=== PATIENT | female | born 1945 | race Hispanic/Latino ===

== ENCOUNTER 2019-06-25 05:59 | Day surgery (SDC) | payer MEDICARE, OTHER ==
[2019-06-25] MEDS ORDERED: ASPIRIN EC 81 MG TAB PO ONE (06:51)
[2019-06-25] MEDS ORDERED: SODIUM CHLORIDE 0.9% 500 ML 500 ML ONE (06:57)
[2019-06-25 07:22] LABS: Basophils # (Auto) 0.1 K/mm3 (0.0-0.1); Basophils % (Auto) 1.2 % (0.0-1.8); Eosinophils # (Auto) 0.1 K/mm3 (0.0-0.4); Eosinophils % (Auto) 1.3 % (0.0-4.3); Hematocrit 37.2 % (30.3-42.9); Hemoglobin 12.3 gm/dl (10.1-14.3); Lymphocytes # (Auto) 1.5 K/mm3 (1.2-5.4); Lymphocytes % (Auto) 24.5 % (13.4-35.0); Mean Corpuscular HGB Conc 33 % (30-34); Mean Corpuscular Volume 89 fl (79-97); Monocytes # (Auto) 0.7 K/mm3 (0.0-0.8); Monocytes % (Auto) 10.9 % (0.0-7.3); Platelet Count 180 K/mm3 (140-440); Red Cell Distribution Width 14.6 % (13.2-15.2)
[2019-06-25 07:29] LABS: BUN/Creatinine Ratio 40; Blood Urea Nitrogen 36 mg/dL (7-17); Calcium 9.7 mg/dL (8.4-10.2); Hemolysis Index 2
[2019-06-25 07:36] LABS: INR 1.02 (0.87-1.13)
[2019-06-25] MEDS: SODIUM CHLORIDE 0.9% 500 ML 500 ML IV SCH ×2 (07:50→09:24)
[2019-06-25] MEDS ORDERED: HEPARIN 10,000 UNITS/10 ML VIAL ONE (08:22)
[2019-06-25] MEDS ORDERED: VERAPAMIL 5 MG/2 ML INJ ONE (08:22)
[2019-06-25] MEDS ORDERED: HEPARIN/NS 5000 UNIT/500ML 1,000 ML IR ONE (08:22)
[2019-06-25] MEDS ORDERED: NITROGLYCERIN SYRINGE 0 ML ONE (08:23)
[2019-06-25] MEDS: fentaNYL 100 MCG/2 ML INJ ONE ×2 (09:01→09:15)
[2019-06-25] MEDS: LIDOCAINE (2%) 20 MG/1 ML VIAL 20 ML MDV INFILTRATI ONE ×2 (09:02→09:16)
[2019-06-25] MEDS: MIDAZOLAM 2 MG/2 ML INJ ONE ×2 (09:02→09:15)
--- NOTE | 2019-06-25 10:03 | Cardiac Catherization Report ---
RIGHT HEART CATHETERIZATION REFERRING PHYSICIAN: Dr. Jeet Palma and myself. INDICATION FOR PROCEDURE: The patient is a pleasant 73-year-old female with multiple medical problems including aortic and mitral valve prostheses, status post bypass surgery; hypertension; hyperlipidemia, who presents with refractory dyspnea, found to have moderate pulmonary hypertension on last echocardiogram, referred by Pulmonology for a right heart catheterization to further investigate etiology of dyspnea. She recently had a left heart catheterization, which revealed patent grafts and normal LV function. Risks, benefits, and alternatives discussed prior to obtaining informed consent. PROCEDURE IN DETAIL: The patient was brought to catheterization lab in a postabsorptive state, prepped and draped in sterile fashion. An 8 mL of 2% lidocaine used to anesthetize the right groin. A standard 6-Czech sheath placed in the right femoral vein. A standard 6-Czech balloon tipped PA catheter was deployed into the body under fluoroscopic guidance. Balloon was expanded and catheter was placed into the pulmonary artery, pulmonary capillary wedge pressure position, pulmonary artery pressure, pulmonary artery, right ventricle, RA, IVC, SVC saturation run is performed and sats were obtained at each step. FA sats also obtained. Next, catheter was removed from the body over wire, sheath removed. Manual pressure used to achieve hemostasis. No complications. The patient tolerated the procedure well. DATA: The patient remained in normal sinus rhythm throughout the procedure. I directly supervised the administration of moderate sedation from 9:14 a.m. to 9:45 a.m. Mean RA pressure is 12, RV systolic is 94, RVEDP is 12. PA pressure is 95 with a mean of 63. Capillary wedge pressure was 29. Cardiac output 3.89. Cardiac index 2.27. Saturation run revealed no significant step up or step down. PA sat 62, RV sat 64, RA sat 64, SVC 64, IVC 63%, hemoglobin is 12.3. CONCLUSIONS: 1. Severe pulmonary arterial hypertension with a PA pressure of 95 with mean of 63. 2. Preserved cardiac output/cardiac index. The patient will follow up with Pulmonology, would consider initiating phosphodiesterase inhibitors for what is likely severe secondary to pulmonary hypertension. Standard groin care. Results of procedure explained in length to the patient and family. All questions and concerns were addressed. Follow up with Dr. Palma and myself in the office. [facility]# [id number] SBM/NTS
[2019-06-25 12:02] VITALS: BP 131/52
--- NOTE | 2019-06-25 13:45 | Short Stay Summary ---
Short Stay Documentation Date of service: 06/25/19 - History H&P: obtained from office - Allergies and Medications Current Medications: Allergies amoxicillin [From Augmentin] Allergy (Unverified 06/25/19 06:43) Itching,RASH bupropion Allergy (Unverified 06/25/19 06:43) Itching ciprofloxacin Allergy (Unverified 06/25/19 06:43) Itching,RASH clavulanic acid [From Augmentin] Allergy (Unverified 06/25/19 06:43) Itching,RASH nortriptyline Allergy (Unverified 06/25/19 06:43) DISORIENTATION/ CONFUSION NSAIDS (Non-Steroidal Anti-Inflamma Allergy (Unverified 06/25/19 06:44) Unknown pentosan polysulfate sodium [From Elmiron] Allergy (Unverified 06/25/19 06:43) DRY MOUTH,SKIN, FALL OUT pravastatin Allergy (Unverified 06/25/19 06:43) MUSCLE ACHES IN UPPER ARMS simvastatin [From Zocor] Allergy (Unverified 06/25/19 06:43) MUSCLE SPASMS METHYTEST Allergy (Uncoded 06/25/19 06:43) Itching Home Medications Medication Instructions Recorded Confirmed Last Taken Type Alendronate Sodium [Fosamax] 70 mg PO QWEEK 06/25/19 06/25/19 06/22/19 History Ascorbic Acid [Vitamin C] 1 tab PO DAILY 06/25/19 06/25/19 06/24/19 History Aspirin EC [Halfprin EC] 81 mg PO QDAY 06/25/19 06/25/19 06/24/19 History Butalb/Acetamin/Caff 50-325-40 1 tab PO Q6HR PRN 06/25/19 06/25/19 2 Weeks Ago History [Fioricet 50-325-40] ~06/11/19 Cetirizine HCl [Allergy Relief] 10 mg PO DAILY 06/25/19 06/25/19 06/24/19 History Colestipol HCl [Colestid] 1 gm PO BID 06/25/19 06/25/19 06/24/19 History Fenofibrate Nanocrystallized 160 mg PO DAILY 06/25/19 06/25/19 06/24/19 History [Fenofibrate] HYDROcodone/APAP 7.5-325 [[place] 1 each PO Q6HR PRN 06/25/19 06/25/19 06/24/19 History 7.5/325] Ipratropium 0.06% [Atrovent] 100 spray NS PRN 06/25/19 06/25/19 Unknown History Losartan [Cozaar] 50 mg PO QDAY 06/25/19 06/25/19 06/24/19 History Metoprolol [Lopressor TAB] 50 mg PO BID 06/25/19 06/25/19 06/24/19 History Mirabegron [Myrbetriq] 25 mg PO QDAY 06/25/19 06/25/19 06/24/19 History Pantoprazole [Protonix] 40 mg PO QDAY 06/25/19 06/25/19 06/21/19 History Sodium Chloride [Macey-128] 3.5 gm OP QHS 06/25/19 06/25/19 06/24/19 History glipiZIDE [Glucotrol] 5 mg PO QDAY 06/25/19 06/25/19 1 Month Ago History ~05/26/19 - Brief post op/procedure progress note Date of procedure: 06/25/19 Pre-op diagnosis: pulmonary HTN Post-op diagnosis: same Procedure: RHC - see dictated cath report Anesthesia: local Estimated blood loss: none Condition: stable - Disposition Condition at discharge: Good Disposition: [id number] TO HOME OR SELFCARE - Discharge Diagnoses (1) Pulmonary hypertension Status: Chronic (2) CAD (coronary artery disease) Status: Chronic (3) History of coronary artery bypass graft Status: Chronic (4) HTN (hypertension) Status: Chronic (5) Hyperlipidemia Status: Chronic (6) Aortic valve prosthesis present Status: Chronic (7) History of mitral valve prosthesis Status: Chronic Short Stay Discharge Plan Activity: advance as tolerated Diet: low fat, low cholesterol, low salt Wound: open to air, keep clean and dry, per your surgeon's advice Follow up with: LORENA CABA MD [Primary Care Provider] - 7 Days JUNIOR LIVE MD [Staff Physician] - 7 Days Forms: CardCath PCI D/C Instructions
== END 2019-06-25 12:10 | disposition home or self-care (01) ==
LOC: CATHLABREC 05:59
PROVIDERS: ATTEND Internal Medicine
DX: R06.09 Other forms of dyspnea (principal); I27.20 Pulmonary hypertension, unspecified; I10 Essential (primary) hypertension; E78.5 Hyperlipidemia, unspecified; I25.10 Atherosclerotic heart disease of native coronary artery without angina pectoris; E78.00 Pure hypercholesterolemia, unspecified; K21.9 Gastro-esophageal reflux disease without esophagitis; M19.90 Unspecified osteoarthritis, unspecified site; Z98.890 Other specified postprocedural states; Z88.6 Allergy status to analgesic agent; Z79.899 Other long term (current) drug therapy; Z79.82 Long term (current) use of aspirin; Z95.1 Presence of aortocoronary bypass graft; Z95.2 Presence of prosthetic heart valve; Z90.49 Acquired absence of other specified parts of digestive tract; Z90.710 Acquired absence of both cervix and uterus; Z79.01 Long term (current) use of anticoagulants; Z87.442 Personal history of urinary calculi; Z86.73 Personal history of transient ischemic attack (TIA), and cerebral infarction without residual deficits; Z88.8 Allergy status to other drugs, medicaments and biological substances
CPT/HCPCS: 36415; 80048; 85025; 85610; 85730; 93005; 93010; 93451; 99156; 99157; C1894; J1644; J2250; J3010; J7040